=== PATIENT | female | born 1940 | race Caucasian/White ===

== ENCOUNTER → 2016-10-28 | Outpatient (CLI) | payer OTHER, BC | LOC: RAD 01:35 | DX: Z12.31 Encounter for screening mammogram for malignant neoplasm of breast (principal) ==

== ENCOUNTER → 2021-04-25 | Outpatient (CLI) | payer OTHER, BC ==
[~2021-04-25] MED LIST: CRESTOR10 MG PO; DAILY VALUE1 EAC1 PO; FISH OIL 1,0001 EAC9 PO; GLUCOPHAGE XR750 MG PO; JARDIANCE25 MG PO; KLOR-CON 1010 MEQ PO; LEVOTHYROXIN0.088 MG PO; LOSARTAN POTAS100 MG PO; MUCINEX600 MG PO; NASONEX17 GM NASAL; TRAMADOL 50 MG50 MG PO; TRIAMTERENE-HC1 EAC3 PO; VITAMIN B-121000 MC2 SUBLING; VITAMIN D350 MC3 PO; ZYRTEC10 M4 PO
== END ==
LOC: LAB 05:56
PROVIDERS: ATTEND Student in an Organized Health Care Education/Training Program
DX: Z01.812 Encounter for preprocedural laboratory examination (principal); Z20.822 Contact with and (suspected) exposure to COVID-19

== ENCOUNTER → 2021-04-29 | Outpatient (CLI) | payer OTHER, BC ==
[~2021-04-29] VITALS: Ht 165.1 cm; Wt 79.4 kg
--- NOTE | 2021-05-01 13:08 | PATH ---
[facility] [address] [address] PATHOLOGY RPT PROCEDURE Name: ZEYNEP BURCIAGA Louisa Room #: REG [facility]..#: [id number] Admission: 04/29/21 Date of : 40 Discharge: Report #: [id number] Path Case #: [id number] [facility] Accession Number: [id number] . 01 Material submitted: . PART A: small bowel - SMALL BOWEL BIOPSY R/O CELIAC PART B: gastrointestinal site - RANDOM GASTRIC BIOPSY R/O H. PYLORI PART C: colon - ASCENDING COLON POLYP X2. Modifiers: ascending PART D: colon - DESCENDING COLON POLYP. Modifiers: descending . 01 Clinical history: . ESOPHAGOGASTRODUODENOSCOPY, COLONOSCOPY IRON DEFICIENCY . 02 Diagnosis: A. Small bowel mucosa, small bowel, biopsy: - Intact normal villous architecture. - Negative for increased intraepithelial lymphocytes. . B. Gastric mucosa, random gastric, biopsy: - Focally active mild to moderate chronic gastritis. - H. pylori immunohistochemical stain is negative. . C. Colonic mucosa, ascending colon polyp, biopsy: - Tubular adenoma, fragments. . D. Colonic mucosa, descending colon polyp, biopsy: - Tubular adenoma. (SCA/db; 05/01/2021) LBQ 05/01/2021 1044 Local . 02 Electronically signed: . Jsese Kaufman DO, Pathologist NPI- [id number] . 01 Gross description: . A. The specimen is received in formalin, labeled "Zeynep Burciaga, small bowel BX, R/O celiac". Received are 2 segments of pale lee tissue measuring 0.4 and 0.5 cm in maximum dimensions. The specimen is entirely submitted in cassette A1. . B. The specimen is received in formalin, labeled "Zeynep Burciaga, random gastric biopsies, R/O H. pylori". Received are 4 segments of pale lee tissue ranging in size from 0.3-0.5 cm in maximum dimensions. The specimen is entirely submitted in cassette B1. . C. The specimen is received in formalin, labeled "Zeynep Burciaga, [place] [address] PATHOLOGY RPT PROCEDURE Name: ZEYNEP BURCIAGA Room #: REG CL Jovi#: [id number] Admission: 04/29/21 Date of : 40 Discharge: Report #: [id number] Path Case #: [id number] ascending colon polyp X2". Received are multiple segments of pale lee tissue ranging in size from 0.3-0.5 cm in maximum dimensions. The specimen is entirely submitted in cassette C1. . D. The specimen is received in formalin, labeled "Zeynep Burciaga, descending colon polyp". Received is a single segment of pale lee tissue measuring 1.8 cm in maximum dimensions. The specimen is entirely submitted in cassette D1. ([facility]; 04/30/2021) NRI/NRI 04/30/2021 1453 Local . 02 Pathologist provided ICD-10: K29.50, D12.2, D12.4, Z12.11 . 02 CPT . 196713, [id number], [id number], [id number], [id number] Specimen Comment: A courtesy copy of this report has been sent to [phone] Specimen Comment: [id number] Specimen Comment: Report sent to / DR MERCADO Performed at: 01 [facility] [address] [id number] MD Rodriguez Mario MD Phone: [phone] Performed at: 02 [facility] [address] [id number] MD Anand Johnson MD Phone: [phone]
== END | disposition home or self-care (01) ==
LOC: GI
PROVIDERS: ATTEND Internal Medicine Gastroenterology
DX: D50.9 Iron deficiency anemia, unspecified (principal); D12.2 Benign neoplasm of ascending colon; D12.4 Benign neoplasm of descending colon; K29.50 Unspecified chronic gastritis without bleeding; K44.9 Diaphragmatic hernia without obstruction or gangrene; I10 Essential (primary) hypertension; E78.5 Hyperlipidemia, unspecified; E11.9 Type 2 diabetes mellitus without complications; J45.909 Unspecified asthma, uncomplicated; Z98.890 Other specified postprocedural states; Z79.899 Other long term (current) drug therapy; Z98.51 Tubal ligation status; Z90.710 Acquired absence of both cervix and uterus; Z88.2 Allergy status to sulfonamides; Z88.8 Allergy status to other drugs, medicaments and biological substances
CPT/HCPCS: 62110; 62900